=== PATIENT | male | born 1975 | race Asian ===

== ENCOUNTER 2018-01-08 12:19 | Emergency (ER) | payer OTHER ==
[2018-01-08] MEDS: IBUPROFEN 800 MG TAB PO (14:48)
[2018-01-08] MEDS: AUGMENTIN 875 MG TAB PO (14:48)
== END 2018-01-08 14:53 | disposition home or self-care (01) ==
LOC: M ED 12:19
DX: J01.90 Acute sinusitis, unspecified (principal); H60.93 Unspecified otitis externa, bilateral; H66.93 Otitis media, unspecified, bilateral; J30.9 Allergic rhinitis, unspecified; F43.10 Post-traumatic stress disorder, unspecified; Z79.899 Other long term (current) drug therapy
CPT/HCPCS: 99283

== ENCOUNTER → 2018-09-23 | Outpatient (CLI) | payer OTHER ==
[~2018-09-23] MED LIST: AUGM875T28 PO; CIPRHCOTIC AU; CLAR1TAB2 PO; FLON1SPR; IBUP80TA PO; ISOVUE-370 76% 100ML VIAL (Q9967) As Ordered ONE; ZOLO50TA PO
--- NOTE | 2018-09-23 16:44 | REP ---
CT neck with contrast History: Bilateral neck swelling Contrast: Isovue 370 75 ml Calcifications are present in the tonsils. This is secondary to previous inflammatory disease. The naso , el and hypopharynx larynx and subglottic trachea are otherwise normal in appearance. The salivary and thyroid glands are normal in size and density. Small lymph nodes less than 1 cm in size are present in the internal jugular chains, posterior triangles and submandibular areas. The lung apices are clear. Mucosal thickening is present in the sinuses. Impression: There is no neck mass or adenopathy. Electronically Signed by Tu Lopez MD 09/23/2018 04:36 P
== END ==
LOC: M RAD 16:03
DX: R22.0 Localized swelling, mass and lump, head (principal)
CPT/HCPCS: 70491; Q9967